=== PATIENT | male | born 1960 | race Caucasian/White ===

== ENCOUNTER 2022-01-04 05:07 | Day surgery (SDC) | payer BC, OTHER ==
[2021-12-31 09:55] VITALS: BMI 25.8
[2022-01-04 11:36] VITALS: BP 138/87; PULSE 80; RESP 20; TEMP 98.8
== END 2022-01-04 13:38 | disposition home or self-care (01) ==
LOC: JASU-SURG 05:07
PROVIDERS: ATTEND Urology
DX: Z53.8 Procedure and treatment not carried out for other reasons (principal)
CPT/HCPCS: C9803-CS; U0003; U0005

== ENCOUNTER 2022-02-15 04:09 | Day surgery (SDC) | payer BC, OTHER ==
[2022-02-12 16:22] VITALS: BMI 25.8
[2022-02-15 09:43] VITALS: RESP 18
[2022-02-15] MEDS ORDERED: ONDANSETRON 4 MG/2 ML VIAL ONE (12:52)
[2022-02-15] MEDS ORDERED: MIDAZOLAM HCL 2 MG/2 ML SINGLE DOSE VIAL ONE (12:52)
[2022-02-15 14:27] VITALS: BP 149/88; PULSE 68; TEMP 98.1
== END 2022-02-15 14:50 | disposition home or self-care (01) ==
LOC: JASU-SURG 04:09
PROVIDERS: ATTEND Urology
PROC: 0TF3XZZ Fragmentation in Right Kidney Pelvis, External Approach (ICD-10-PCS; principal; 2022-02-15 12:30)
DX: N20.0 Calculus of kidney (principal)
CPT/HCPCS: 82962

== ENCOUNTER 2022-11-08 05:20 | Day surgery (SDC) | payer BC, OTHER ==
[2022-11-02 16:33] VITALS: BMI 26.5
[2022-11-08] MEDS ORDERED: MIDAZOLAM HCL 2 MG/2 ML SINGLE DOSE VIAL ONE (12:24)
[2022-11-08] MEDS ORDERED: ONDANSETRON 4 MG/2 ML VIAL ONE (12:50)
[2022-11-08 14:05] VITALS: RESP 18; TEMP 98.2
[2022-11-08 14:07] VITALS: BP 151/88; PULSE 78
== END 2022-11-08 14:20 | disposition home or self-care (01) ==
LOC: JASU-SURG 05:20
PROVIDERS: ATTEND Urology
PROC: 0TF4XZZ Fragmentation in Left Kidney Pelvis, External Approach (ICD-10-PCS; principal; 2022-11-08 11:30)
DX: N20.0 Calculus of kidney (principal)
CPT/HCPCS: 82962